=== PATIENT | male | born 1975 | race Caucasian/White ===

== ENCOUNTER 2017-03-31 14:06 | Emergency (ER) | payer OTHER ==
[~2017-03-31] VITALS: Ht 172.7 cm; Wt 63.4 kg
[~2017-03-31 14:06] MED LIST: ONDA4TAB10 SL; OXYC1TAB3 PO; TAMS0.4C38 PO
[2017-03-31 14:10] VITALS: BP 204/117; PULSE 104; TEMP 36.8; O2SAT 97; Ht 172.7 cm; Wt 63.4 kg
--- NOTE | 2017-03-31 14:33 | EMERGENCY ROOM VISIT NOTE ---
History Report prepared by Hermelindaibdaisy: Francine Gann Under the Supervision of: Dr. Lennox Mccray D.O. First contact with patient: 14:18 Chief Complaint: KIDNEY STONE Stated Complaint: KIDNEY STONE PROBLEMS History of Present Illness The patient is a 41 year old male who presents to the Emergency Room with complaints of intermittent flank pain for the past 4 days. He went to [facility] 4 days ago, and states 3 stones were found on imaging. He was given a prescription for Hydrocodone and was sent home. He went to work on Friday night, but states the pain persisted until Friday. He came here to the ED on Friday, and had an ultrasound done. He admits he has been constipated and had to use laxatives and enemas in order to have a bowel movement while taking the Hydrocodone. He last took Hydrocodone this morning. The patient admits to dark colored urine but denies any gross hematuria. He experienced flank pain and pain in his testicle this morning, but states he is pain free here in the ED. The patient admits to a history of drug abuse and states his Mother dropped him off at the ED and wants him to "get help". He admits to using drugs "once or twice a week" but denies any history of IV drug use. He states he is not ready to get help for his drug use here today. 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 A total of 10 systems reviewed and were otherwise negative. Past Medical & Surgical Medical Problems: (1) Dyslipidemia (2) Kidney stones Social History Smoking Status: Current Every Day Smoker Alcohol Use: none Drug Use: other (patient will not admit what drugs he uses) Marital Status: single Housing Status: lives with family Occupation Status: employed Current/Historical Medications Scheduled Tamsulosin Hcl (Flomax), 0.4 MG PO DAILY Scheduled PRN Ondasetron Odt (Zofran Odt), 4 MG SL Q6H PRN for Nausea or Vomiting Oxycodone Immediate Rel Tab (Roxicodone Ir), 1-2 TAB PO Q4H PRN for Severe Pain Allergies Coded Allergies: No Known Allergies (Unverified , 03/31/17) Physical Exam Vital Signs Date Time Temp Pulse Resp B/P (MAP) Pulse Ox O2 Delivery O2 Flow Rate FiO2 03/31/17 14:10 36.8 104 16 204/117 97 Room Air Physical Exam GENERAL: Patient is awake, alert, in no acute distress, patient is resting comfortably and showing no signs of anxiety EYES: The conjunctivae are clear. The pupils are round and reactive. EARS, NOSE, MOUTH AND THROAT: The nose is without any evidence of any deformity. Mucous membranes are moist tongue is midline NECK: The neck is nontender and supple. RESPIRATORY: Normal respiratory effort is noted there is no evidence of wheezing rhonchi or rales CARDIOVASCULAR: Regular rate and rhythm noted there no murmurs rubs or gallops normal S1 normal S2 GASTROINTESTINAL: The abdomen is soft. Bowel sounds are present in all quadrants. Abdomen is nontender BACK: No midline tenderness appreciated, mild right CVA tenderness noted to percussion, ROM intact MUSCULOSKELETAL/EXTREMITIES: There is no evidence of gross deformity full range of motion is noted in the hips and shoulders SKIN: There is no obvious evidence of any rash. There are no petechiae, pallor or cyanosis noted. NEUROLOGIC: Patient is awake alert and oriented x3 Medical Decision & Procedures ER Provider Diagnostic Interpretation: Radiology results as stated below per my review and radiologist interpretation: ABDOMEN 2VIEW W/PA CHEST RTN CLINICAL HISTORY: constipation COMPARISON STUDY: 03/24/2017 FINDINGS: The erect chest reveals no free air. There is no focal pulmonary consolidation. Erect and supine views the abdomen reveal no abnormally dilated loops of large or small bowel. There are no transition zones indicate bowel obstruction. The previously identified extensive colonic stool has been evacuated. IMPRESSION: No evidence of bowel obstruction. No evidence of free air. Electronically signed by: Hardy Houston M.D. 03/31/2017 2:52 PM ED Course 1420: The patient was evaluated in room B3B. A complete history and physical examination were performed. 1523: I reevaluated the patient. He is feeling better. I discussed his results and discharge instructions and he verbalized complete understanding and agreement. Medical Decision Triage Nursing notes reviewed. The patient's history was concerning for constipation. Differential diagnosis: Etiologies such as functional constipation, impaction, obstruction, volvulus, metabolic abnormality, infection, neurologic, as well as others were entertained. The patient is a 41-year-old male who presented to the emergency department for evaluation of intermittent flank pain as well as constipation. The patient was recently diagnosed with a kidney stone. He had been taking pain medications but started having significant constipation. He states his flank pain is been intermittent and he was recently seen at [facility] as well as seen in our facility and diagnosed with kidney stones. The patient did not have a physical exam consistent with an acute surgical abdomen. He did not wish to give us a urinalysis. His x-rays appear to be consistent with resolving constipation. I discussed the patient's radiographic studies with him. He was encouraged to call to schedule a follow-up with the urologist. He was encouraged to continue all medications as prescribed and return to the emergency department immediately if symptoms change worsen or the need arises. Medication Reconcilliation Current Medication List: was personally reviewed by me Blood Pressure Screening Patient's blood pressure: Elevated blood pressure Blood pressure disposition: Elevated BP felt to be situational Impression Primary Impression: Constipation Additional Impression: Kidney stones Scribe Attestation The scribe's documentation has been prepared under my direction and personally reviewed by me in its entirety. I confirm that the note above accurately reflects all work, treatment, procedures, and medical decision making performed by me. Departure Information Dispostion Home / Self-Care Referrals No Doctor, Assigned (PCP) Patient Instructions Constipation, Kidney Stones, My [facility] Additional Instructions Drink plenty clear liquids. Continue all medications as prescribed. Call the urologist to schedule a follow-up appointment. Specifically ask about obtaining an appointment at the [place] office. Return to the emergency department immediately if symptoms change worsen or the need arises. Problem Qualifiers Primary Impression: Constipation Constipation type: unspecified constipation type Qualified Codes: K59.00 - Constipation, unspecified
--- NOTE | 2017-03-31 14:53 | DIAGNOSTIC IMAGING REPORT ---
ABDOMEN 2VIEW W/PA CHEST RTN CLINICAL HISTORY: constipation COMPARISON STUDY: 03/24/2017 FINDINGS: The erect chest reveals no free air. There is no focal pulmonary consolidation. Erect and supine views the abdomen reveal no abnormally dilated loops of large or small bowel. There are no transition zones indicate bowel obstruction. The previously identified extensive colonic stool has been evacuated. IMPRESSION: No evidence of bowel obstruction. No evidence of free air. Electronically signed by: Hardy Houston M.D. 03/31/2017 2:52 PM Dictated Date/Time: 03/31/2017 2:51 PM
== END 2017-03-31 16:19 | disposition home or self-care (01) ==
LOC: C.EDB 14:09
DX: K59.00 Constipation, unspecified (principal); N20.0 Calculus of kidney; E78.5 Hyperlipidemia, unspecified; Z87.442 Personal history of urinary calculi; F17.210 Nicotine dependence, cigarettes, uncomplicated